=== PATIENT | male | born 1965 | race Caucasian/White ===

== ENCOUNTER 2016-10-12 17:42 | Inpatient (IN) | payer MEDICAID, OTHER ==
[~2016-10-12] VITALS: Ht 188 cm; Wt 93.0 kg
[~2016-10-12 17:42] MED LIST: BISA-79 PO; BUSP5TAB PO; HYDR-3326 PO; LACT1CAP72 PO; PIPE3.379 IV; SULF1TAB48 PO; VANC1PLA3 IV
--- NOTE | 2016-10-12 17:44 | NUR ---
pt bibra to er bed 11. c/o fever since yesterday. presents w/ lle swelling and redness. denies trauma. pt is febrile mine captain w/ oral temp of 101.2 placed on monitor. tachy. pt denies chest pain. awaiting md smith.
--- NOTE | 2016-10-12 17:50 | NUR ---
dr madrid at bedside for eval.
[2016-10-12] MEDS ORDERED: IV SET PRIMARY 1 EA INFUS.SET MC ONE (17:53)
[2016-10-12] MEDS ORDERED: IV NS 0.9% 3,000 ML ONE (17:53)
--- NOTE | 2016-10-12 17:55 | NUR ---
iv line started blood drawn and sent to lab.
[2016-10-12] MEDS ORDERED: IV NS 0.9% 1,000 ML BAG IV ONE (18:00)
[2016-10-12 18:12] LABS: INR 1.17 (0.87-1.13); PROTHROMBIN TIME 12.3 SECS (9.5-12.7)
[2016-10-12 18:14] LABS: ALANINE AMINOTRANSFERASE 46 U/L (12-78); ALBUMIN 3.8 g/dL (3.4-5.0); ALKALINE PHOSPHATASE 121 U/L (46-116); ASPARTATE AMINOTRANSFERASE 36 U/L (15-37); BILIRUBIN,DIRECT 0.1 mg/dL (0.0-0.2); BILIRUBIN,TOTAL 0.8 mg/dL (0.2-1.0); CALCIUM, SERUM 9.3 mg/dL (8.5-10.1); CARBON DIOXIDE 29 mmol/L (21-32); CHLORIDE 94 mmol/L (98-107); CREATININE 1.2 mg/dL (0.6-1.3); GFR 65 mL/min (>60); GLUCOSE 119 mg/dL (74-106); POTASSIUM 4.4 mmol/L (3.5-5.1); SODIUM SERUM 129 mmol/L (136-145); TOTAL PROTEIN, SERUM 8.5 g/dL (6.4-8.2); UREA NITROGEN, BLOOD 14 mg/dL (7-18)
--- NOTE | 2016-10-12 18:14 | NUR ---
radiology at bedside for chest and lt tib/fib xray.
[2016-10-12] MEDS ORDERED: ACETAMINOPHEN ES 500 MG TABLET ONE (18:15)
[2016-10-12 18:16] LABS: TROPONIN I < 0.017 ng/mL (0.00-0.056)
[2016-10-12] MEDS ORDERED: BUSP30TA2 PO (18:19)
[2016-10-12 18:21] LABS: LACTIC ACID 1.6 mmol/L (0.4-2.0)
[2016-10-12 18:24] LABS: BASOPHILS % (AUTO) 0.1 % (0.0-2.0); HEMATOCRIT 46 % (39-51); HEMOGLOBIN 15.3 g/dL (13.5-17.5); LYMPHOCYTES # (AUTO) 0.9 /CMM (0.8-4.8); LYMPHOCYTES % (AUTO) 4.3 % (20.0-44.0); MEAN CORPUSCULAR HEMOGLOBIN 28 PG (26.0-33.0); MEAN CORPUSCULAR HGB CONC 33 g/dl (31.0-36.0); MEAN CORPUSCULAR VOLUME 84 fL (80-96); MONOCYTES # (AUTO) 1.2 /CMM (0.1-1.30); MONOCYTES % (AUTO) 5.8 % (2.0-12.0); NEUTROPHILS # (AUTO) 18.4 /CMM (1.8-8.9); NEUTROPHILS % (AUTO) 89.8 % (43.0-81.0); PLATELET COUNT (AUTO) 207 /CMM (150-450); RDW COEFFICIENT OF VARIATION 13.4 (11.5-15.0); RED BLOOD CELL COUNT(AUTO) 5.46 MIL/uL (4.5-6.0); WHITE BLOOD COUNT (AUTO) 20.5 K/uL (4.3-11.0)
[2016-10-12] MEDS ORDERED: PIPERACILLIN /TAZOBACTAM 3.375 G in IV D5W 50 ML IV ONE (18:30)
[2016-10-12] MEDS ORDERED: VANCOMYCIN 1 GM in IV D5W 250 ML IV ONE (18:30)
[2016-10-12] MEDS ORDERED: ACETAMINOPHEN ES 500 MG TABLET PO ONE (18:30)
[2016-10-12] MEDS ORDERED: IV SET PRIMARY PUMP SET 1 EA INFUS.SET MC ONE (18:38)
--- NOTE | 2016-10-12 18:46 | NUR ---
pt still unable to provide urine sample at this time. urinal at bedside.
[2016-10-12 19:08] LABS: BAND % (MANUAL) 9 % (0.0-5.0); BASOPHILS % (MANUAL) 0 % (0.0-2.0); EOSINOPHILS % (MANUAL) 0 % (0-4); LYMPHOCYTES % (MANUAL) 5 % (16-48); MONOCYTES % (MANUAL) 9 % (0-11.0); NEUTROPHILS % (MANUAL) 77 (42-76); PLATELET ESTIMATE ADEQUATE
--- NOTE | 2016-10-12 19:20 | NUR ---
pt to radiology for lle ct scan via [facility].
[2016-10-12 19:23] LABS: APPEARANCE,URINE Clear (CLEAR); BILIRUBIN,URINE Negative (NEGATIVE); BLOOD, URINE Negative Ery/uL (NEGATIVE); COLOR,URINE Yellow (YELLOW); KETONES,URINE Negative (NEGATIVE); LEUKOCYTE ESTERASE ,URINE Negative (NEGATIVE); NITRITE, URINE Negative (NEGATIVE); PH,URINE 8.5 (5.0-8.0); PROTEIN,URINE 100 mg/dl (NEGATIVE); UGLUCOSE Negative (NEGATIVE)
[2016-10-12] MEDS ORDERED: MAGNESIUM HYDROXIDE 30 ML UDC PO PRN (19:30)
[2016-10-12] MEDS ORDERED: ENOXAPARIN SODIUM 40 MG/0.4 ML DISP.SYRIN SQ SCH (19:30)
[2016-10-12] MEDS: VANCOMYCIN 1.5 GM in IV D5W 500 ML IV SCH (19:30)
[2016-10-12] MEDS ORDERED: MAG HYDROX/AL HYDROX/SIMETH 30 ML UDC PO PRN (19:30)
[2016-10-12] MEDS ORDERED: ONDANSETRON HCL/PF 4 MG/2 ML VIAL IVP PRN (19:30)
[2016-10-12] MEDS ORDERED: Z GUARD REMEDY 2 OZ OINT TP PRN (19:30)
[2016-10-12] MEDS ORDERED: ZOLPIDEM TARTRATE 5 MG TABLET PO PRN (19:30)
--- NOTE | 2016-10-12 19:48 | NUR ---
report given to meng. awaiting transfer to floor.
--- NOTE | 2016-10-12 20:00 | NUR ---
MS MANAGER HELPDESK NOTES ADMITTED THIS 50Y.O. MALE FROM ER PER CRISTA ACCOMPANIED BY LANDSCAPE ENGINEER.CHIEF COMPLAINTS OF FEVER SINCE YESTERDAY AND REDNESS LEFT LOWER LEG.DIAGNOSIS FOR SEPSIS/CELLULITIS LEFT LOWER EXTREMITY.ALERT,ORIENTED X4,NO SOB ,FLUSHED FACE NOTED,AFEBRILE 98.7.SEPSIS PROTOCOL INITIATED IN ER,GIVEN 3 LITERS OF NS,BLOOD CULTURE X2 WAS DONE AWAITING RESULT.IV VANCOMYCIN WAS ALSO GIVEN AND ZOSYN 3.375 GM IV WAS GIVEN.NOTED LEFT LOWER LEG REDNESS WITH TRACING DONE IN ER.SALINE LOCK RFA #20 INTACT AND PATENT.NOTED ALSO DRY OLD WOUND WITH SCAB ON LEFT KNEE AND SKIN ABRASION ON THE RIGHT KNEE.WILL CONTINUE TO MONITOR STATUS.
[2016-10-12] MEDS ORDERED: SECONDARY IV SET 1 EA INFUS.SET MC ONE (20:25)
[2016-10-12] MEDS ORDERED: IV NS 0.9% 1,000 ML ONE (20:25)
[2016-10-12 20:30] VITALS: BP_SYST 114; BP_SYST 135; BP_DIAS 65; BP_DIAS 73
[2016-10-12] MEDS: IV NS 0.9% 1,000 ML IV PRN (20:35)
--- NOTE | 2016-10-12 20:35 | NUR ---
MS RN NOTES STARTED ON NS 1LITER AT 100ML/HR RATE ORDERED
[2016-10-12] MEDS: PIPERACILLIN /TAZOBACTAM 4.5 G in IV D5W 50 ML IV SCH (21:00)
[2016-10-12] MEDS ORDERED: ENOXAPARIN SODIUM 40 MG/0.4 ML DISP.SYRIN SQ ONE (21:04)
--- NOTE | 2016-10-12 21:09 | NUR ---
MS RN NOTES STARTED ON LOVENOX 40MG SQ GIVEN ON RIGHT LOWER ABDOMEN FOR DVT PROPHYLAXIS
--- NOTE | 2016-10-12 21:20 | NUR ---
MS RN NOTES NURSING SHOP AND ALTERATION TAILOR STEPHEN MADE AWARE THAT PATIENT WAS ADMIT TELE,THAT DR MANNING WAS ALREADY NOTIFIED
--- NOTE | 2016-10-12 21:20 | NUR ---
MS RN NOTES NOTED ORDER WAS ADMIT TELE,SEMD MESSAGE TO DR MANNING AWAITING TO RESPOND
--- NOTE | 2016-10-12 21:30 | NUR ---
MS RN NOTES DR MANNING CAME AND CHECKED PATIENT,MADE AWARE ABOUT ADMIT TELE.HE SAID ITS OK MED SURG STATUS.ORDER CHANGED FROM TELE TO MED SURG.
[2016-10-12 22:00] VITALS: BP 114/65
[2016-10-13] VITALS (7 sets, daily range): BP systolic 129–132; BP diastolic 76–77
--- NOTE | 2016-10-13 02:00 | NUR ---
MS RN NOTES SOUND ASLEEP,KEPT WARM AND COMFORTABLE
[2016-10-13] MEDS ORDERED: IV D5W 50 ML IV ONE (03:30)
[2016-10-13] MEDS ORDERED: PIPERACILLIN /TAZOBACTAM 2.25 G VIAL IV ONE (03:30)
[2016-10-13] MEDS: PIPERACILLIN /TAZOBACTAM 4.5 G in IV D5W 50 ML IV SCH (04:35)
[2016-10-13] MEDS ORDERED: IV NS 0.9% 1,000 ML ONE (06:05)
--- NOTE | 2016-10-13 06:10 | NUR ---
MS RN NOTES NEW IV BAG HUNG
[2016-10-13] MEDS: IV NS 0.9% 1,000 ML IV PRN ×2 (06:11→22:25)
--- NOTE | 2016-10-13 06:21 | NUR ---
MS RN NOTES REDNESS ON LEFT LOWER EXTREMITY REMAINS THE SAME.PAIN BEARABLE,WARM TO THE TOUCH.FEELING HUNGRY,EARLY BREAKFAST ORDERED.IN NO ACUTE DISTRESS.WILL ENDORSE TO DAY NURSE FOR LORI.
[2016-10-13] MEDS: HYDROCODONE/APAP 10/325MG 1 EA TABLET PO PRN ×2 (07:27→21:24)
--- NOTE | 2016-10-13 07:28 | NUR ---
MS RN NOTES C/O PAIN 9/10 ON PAIN SCALE VIA LEFT LEG,NORCO 10/325MG.1 TAB PO GIVEN
[2016-10-13] MEDS ORDERED: ENOXAPARIN SODIUM 40 MG/0.4 ML DISP.SYRIN SQ SCH (07:36)
--- NOTE | 2016-10-13 07:40 | NUR ---
MS RN OPENING NOTE PT WAS EATING BREAKFAST PT WAS COMPLAINING OF A HEADACHE, GIVEN NORCO AT 0730 BED IS LOW POSITION. CALL LIGHT WITHIN REACH
[2016-10-13] MEDS ORDERED: FEE PK DOSING 1 MIN EA MC ONE (07:46)
[2016-10-13] MEDS: VANCOMYCIN 1.5 GM in IV D5W 500 ML IV SCH ×2 (08:11→19:02)
[2016-10-13] MEDS ORDERED: SET RED CAP 1 EA INFUS.SET MC ONE (08:13)
[2016-10-13] MEDS: PANTOPRAZOLE 40 MG TABLET.DR PO SCH (08:33)
[2016-10-13 09:34] LABS: HEMATOCRIT 40 % (39-51); LYMPHOCYTES % (AUTO) 7.5 % (20.0-44.0); MEAN CORPUSCULAR HEMOGLOBIN 28 PG (26.0-33.0); MEAN CORPUSCULAR HGB CONC 33 g/dl (31.0-36.0); MEAN CORPUSCULAR VOLUME 85 fL (80-96); MONOCYTES # (AUTO) 0.9 /CMM (0.1-1.30); NEUTROPHILS # (AUTO) 11.6 /CMM (1.8-8.9); NEUTROPHILS % (AUTO) 85.5 % (43.0-81.0); PLATELET COUNT (AUTO) 161 /CMM (150-450); RDW COEFFICIENT OF VARIATION 13.6 (11.5-15.0); RED BLOOD CELL COUNT(AUTO) 4.64 MIL/uL (4.5-6.0); WHITE BLOOD COUNT (AUTO) 13.6 K/uL (4.3-11.0)
[2016-10-13 10:13] LABS: THYROID STIMULATING HORMONE 0.631 uIU/mL (0.358-3.74)
[2016-10-13 10:45] LABS: PHOSPHORUS 1.6 mg/dL (2.5-4.9)
[2016-10-13 11:04] LABS: MAGNESIUM 1.6 mg/dL (1.8-2.4)
--- NOTE | 2016-10-13 11:42 | NUR ---
MS RN NOTE LAB RESULTS SHOWED A DECREASE IN WBC FROM 20.5 TO 13.6. MD WAS NOTIFIED
[2016-10-13] MEDS ORDERED: SECONDARY IV SET 1 EA INFUS.SET MC ONE (12:32)
[2016-10-13] MEDS: PIPERACILLIN /TAZOBACTAM 3.375 G in IV D5W 50 ML IV SCH ×2 (12:32→17:41)
[2016-10-13] MEDS ORDERED: K PHOS NEUTRAL 250 MG TABLET PO ONE (13:30)
[2016-10-13] MEDS: ACETAMINOPHEN 325 MG TABLET PO PRN (14:52)
--- NOTE | 2016-10-13 18:11 | NUR ---
MS/RN CLOSING NOTES PT IS WATCHING TV WITH NO COMPLAINTS OF PAIN. PT IS COOPERATIVE LAST BM AT 1620 TYLENOL WAS GIVEN FOR HEADACHE
--- NOTE | 2016-10-13 19:20 | NUR ---
RN NOTES RECEIVED PT AWAKE, NO SOB, NOT IN DISTRESS, ON ROOM AIR WITH GOOD SATURATION. PT ALERT AND ORIENTED X4, DENIES ANY PAIN AND DISCOMFORT AT THIS TIME. IV ACCESS ON RIGHT AC PATENT AND INTACT WITH ONGOING VANCOMYCIN INFUSING WELL. LEFT LOWER LEG REDNESS AND SWELLING NOTED AND KEPT ELEVATED. BED LOW, LOCKED WITH CALL LIGHT WITHIN REACH. KEPT COMFORTABLE AND ATTENDED. WILL CONTINUE TO MONITOR PT.
--- NOTE | 2016-10-13 21:15 | NUR ---
RN NOTES PT VERBALIZING HE FEELA ANXIOUS, HE SAID THAT HE'S TAKING BUSPAR 30 MG TAB BID. CALLED AND SPOKE TO DR MANNING AND GAVE THE ORDER. PT MADE AWARE , NOTED AND CARRIED OUT.
--- NOTE | 2016-10-13 21:24 | NUR ---
RN NOTES PT COMPLAINS OF 8/10 PAIN ON HIS LEFT LOWER LEG. NORCO 10/325MG TAB GIVEN PO. WILL CONTINUE TO MONITOR PT.
[2016-10-13] MEDS: ENOXAPARIN SODIUM 40 MG/0.4 ML DISP.SYRIN SQ SCH (21:25)
[2016-10-13] MEDS ORDERED: busPIRone 5 MG TABLET ONE (21:53)
[2016-10-13] MEDS: busPIRone 5 MG TABLET PO SCH (22:26)
[2016-10-14] MEDS: PIPERACILLIN /TAZOBACTAM 3.375 G in IV D5W 50 ML IV SCH ×2 (00:02→05:32)
[2016-10-14] MEDS: HYDROCODONE/APAP 10/325MG 1 EA TABLET PO PRN (05:32)
--- NOTE | 2016-10-14 05:32 | NUR ---
RN NOTES PT COMPLAINS OF 8/10 PAIN ON HIS LEFT LOWER LEG. NORCO 10/325 MG TAB GIVEN PO. WILL CONTINUE TO MONITOR PT.
[2016-10-14] MEDS: VANCOMYCIN 1.5 GM in IV D5W 500 ML IV SCH ×2 (06:31→20:38)
[2016-10-14 06:43] LABS: EOSINOPHILS % (AUTO) 0.1 % (0.0-6.0); HEMATOCRIT 38 % (39-51); HEMOGLOBIN 12.7 g/dL (13.5-17.5); LYMPHOCYTES % (AUTO) 10.1 % (20.0-44.0); MEAN CORPUSCULAR HEMOGLOBIN 29 PG (26.0-33.0); MEAN CORPUSCULAR HGB CONC 33 g/dl (31.0-36.0); MEAN CORPUSCULAR VOLUME 86 fL (80-96); MONOCYTES # (AUTO) 1.3 /CMM (0.1-1.30); MONOCYTES % (AUTO) 12.5 % (2.0-12.0); NEUTROPHILS # (AUTO) 7.9 /CMM (1.8-8.9); NEUTROPHILS % (AUTO) 77.3 % (43.0-81.0); PLATELET COUNT (AUTO) 145 /CMM (150-450); RDW COEFFICIENT OF VARIATION 13.6 (11.5-15.0); RED BLOOD CELL COUNT(AUTO) 4.44 MIL/uL (4.5-6.0); WHITE BLOOD COUNT (AUTO) 10.3 K/uL (4.3-11.0)
[2016-10-14 06:44] LABS: CALCIUM, SERUM 8.4 mg/dL (8.5-10.1); CREATININE 0.9 mg/dL (0.6-1.3); PHOSPHORUS 2.3 mg/dL (2.5-4.9)
--- NOTE | 2016-10-14 06:48 | NUR ---
RN NOTES PT ASLEEP, BREATHING REGULAR AND UNLABORED, NO SOB, NOT IN DISTRESS, TOLERATING ROOM AIR. VITAL SIGNS STABLE, AFEBRILE. NO EPISODE OF NAUSEA AND VOMITING. KEPT PAIN AT TOLERABLE LEVEL. ALL DUE MEDS GIVEN. ALL NEEDS ATTENDED. NO SIGNIFICANT CHANGE IN CONDITION NOTED. WILL ENDORSE TO MORNING RN FOR CONTINUITY OF CARE.
--- NOTE | 2016-10-14 07:30 | NUR ---
MS RN OPENING RECEIVED PATIENT A/OX4 SLEEPING AWAKE TO LIGHT TOUCH. PATIENT STATES NORCO IS WORKING FOR HIS PAIN AND TOLERABLE PAIN NOW. PATIENT STATES NO NEEDS AT THIS TIME. BILAT LOWER EXTREMITIES ELEVATED ON PILLOWS AND PATIENT DENIES SOB, DIFFICULTY BREATHING. CALL LIGHT IN REACH,BED LOWERED AND LOCKED, RAILS UPX3 FOR SAFETY AND WILL ROUND Q2H OR LESS PER NEEDS
[2016-10-14 08:00] VITALS: BP 117/66
[2016-10-14] MEDS: PANTOPRAZOLE 40 MG TABLET.DR PO SCH (08:16)
[2016-10-14] MEDS: busPIRone 5 MG TABLET PO SCH ×2 (09:38→16:51)
[2016-10-14] MEDS: CEFTRIAXONE 1 G in IV D5W 50 ML IV SCH (09:38)
[2016-10-14] MEDS: IV NS 0.9% 1,000 ML IV PRN (09:48)
[2016-10-14] MEDS: KETOROLAC TROMETHAMINE INJ 30 MG/ML VIAL IM/IV PRN ×2 (09:51→16:51)
[2016-10-14 16:00] VITALS: BP 113/61
[2016-10-14] MEDS ORDERED: K PHOS NEUTRAL 250 MG TABLET PO ONE (16:00)
[2016-10-14] MEDS: LACTOBACILLUS RHAMNOSUS GG 1 EACH CAP.SPRINK PO SCH (16:52)
--- NOTE | 2016-10-14 18:45 | NUR ---
MS RN CLOSING PATIENT STABLE NO COMPLICATIONS. PATIENT STATES HE FEELS MUCH BETTER TODAY AND PRN MEDICATIONS HELPING TREMENDOUSLY. PATIENT DENIES PAIN AT THIS TIME, SOB, DIFFICULTY BREATHING. IN POSITION OF COMFORT. ALL DUE MEDS GIVEN AND ALL NEEDS MET. CALL LIGHT IN REACH, BED LOWERED AND LOCKED, RAILS UPX3 FOR SAFETY AND WILL ENDORSE CARE TO RN FOR LORI
--- NOTE | 2016-10-14 19:30 | NUR ---
MS RN INITIAL NOTE RECEIVED PT SLEEPING BUT EASILY AROUSED, ORIENTED X4, NO COMPLAINT OF PAIN OR RESPIRATORY DISTRESS NOTED DURING PHYSICAL ASSESSMENT, WILL CONTINUE TO MONITOR CLOSELY.
[2016-10-14 20:16] VITALS: BP 121/68
[2016-10-14] MEDS: ENOXAPARIN SODIUM 40 MG/0.4 ML DISP.SYRIN SQ SCH (20:23)
[2016-10-15] MEDS: KETOROLAC TROMETHAMINE INJ 30 MG/ML VIAL IM/IV PRN ×2 (00:23→18:43)
[2016-10-15] MEDS: IV NS 0.9% 1,000 ML IV PRN (06:17)
--- NOTE | 2016-10-15 06:42 | NUR ---
PT SLEPT MOST OF THE NIGHT, REMAINED STABLE AND COMFORTABLE, WILL ENDORSE TO AM NURSE FOR LORI.
[2016-10-15 08:00] VITALS: BP 131/80
[2016-10-15] MEDS: VANCOMYCIN 1.5 GM in IV D5W 500 ML IV SCH ×2 (09:10→18:55)
[2016-10-15] MEDS: PANTOPRAZOLE 40 MG TABLET.DR PO SCH (09:11)
[2016-10-15] MEDS: LACTOBACILLUS RHAMNOSUS GG 1 EACH CAP.SPRINK PO SCH ×2 (09:11→17:15)
[2016-10-15] MEDS: busPIRone 5 MG TABLET PO SCH ×2 (09:11→17:15)
--- NOTE | 2016-10-15 10:00 | NUR ---
iv leaking and removed.several attempts to restart and unsuccessful,stacey brooks called for midline order.
--- NOTE | 2016-10-15 10:15 | NUR ---
stacey brooks aware pt. on 2 antibiotics.
--- NOTE | 2016-10-15 10:20 | NUR ---
AM VACOMYCIN NOT GIVEN IV SITE LEAKING.
[2016-10-15 10:35] LABS: BASOPHILS % (AUTO) 0.1 % (0.0-2.0); EOSINOPHILS # (AUTO) 0.1 /CMM (0.0-0.7); EOSINOPHILS % (AUTO) 0.7 % (0.0-6.0); HEMATOCRIT 35 % (39-51); HEMOGLOBIN 11.6 g/dL (13.5-17.5); LYMPHOCYTES # (AUTO) 0.9 /CMM (0.8-4.8); LYMPHOCYTES % (AUTO) 11.7 % (20.0-44.0); MEAN CORPUSCULAR HEMOGLOBIN 28 PG (26.0-33.0); MEAN CORPUSCULAR HGB CONC 33 g/dl (31.0-36.0); MEAN CORPUSCULAR VOLUME 84 fL (80-96); MONOCYTES # (AUTO) 0.9 /CMM (0.1-1.30); MONOCYTES % (AUTO) 11.9 % (2.0-12.0); NEUTROPHILS # (AUTO) 5.9 /CMM (1.8-8.9); NEUTROPHILS % (AUTO) 75.6 % (43.0-81.0); PLATELET COUNT (AUTO) 198 /CMM (150-450); RDW COEFFICIENT OF VARIATION 13.4 (11.5-15.0); RED BLOOD CELL COUNT(AUTO) 4.17 MIL/uL (4.5-6.0); WHITE BLOOD COUNT (AUTO) 7.8 K/uL (4.3-11.0)
[2016-10-15 10:51] LABS: CALCIUM, SERUM 8.2 mg/dL (8.5-10.1); CREATININE 0.8 mg/dL (0.6-1.3); PHOSPHORUS 2.7 mg/dL (2.5-4.9); POTASSIUM 3.8 mmol/L (3.5-5.1)
[2016-10-15] MEDS ORDERED: [UNRECOGNIZED DRUG - SUPPLY] MC ONE (13:15)
[2016-10-15] MEDS: HYDROCODONE/APAP 10/325MG 1 EA TABLET PO PRN (15:00)
--- NOTE | 2016-10-15 15:00 | NUR ---
MEDICATED FOR PAIN WITH NORCO TAB.STATES PAIN GENERALIZED.
[2016-10-15 16:00] VITALS: BP 147/74
--- NOTE | 2016-10-15 18:00 | NUR ---
BETHANY UREÑA HERE MIDLINE INSERTED CHRISTIAN ARM,TOLERATED WELL.ANTIBIOTICS RESTARTED.
[2016-10-15] MEDS: CEFTRIAXONE 1 G in IV D5W 50 ML IV SCH (18:14)
--- NOTE | 2016-10-15 18:50 | NUR ---
REQUESTING TORADOL FOR HEADACHE.
[2016-10-15] MEDS ORDERED: SECONDARY IV SET 1 EA INFUS.SET MC ONE (18:54)
--- NOTE | 2016-10-15 19:30 | NUR ---
MS RN INITIAL NOTE RECEIVED PT AWAKE AND ALERT, ORIENTED X4, NO COMPLAINT OF PAIN OR RESPIRATORY DISTRESS NOTED, PT IS CLEAN/DRY, STABLE AND COMFORTABLE, WILL CONTINUE TO MONITOR CLOSELY.
[2016-10-15 19:53] VITALS: BP 127/77
[2016-10-15] MEDS: ENOXAPARIN SODIUM 40 MG/0.4 ML DISP.SYRIN SQ SCH (21:12)
[2016-10-16] MEDS: KETOROLAC TROMETHAMINE INJ 30 MG/ML VIAL IM/IV PRN ×2 (04:02→18:22)
[2016-10-16] MEDS: VANCOMYCIN 1.5 GM in IV D5W 500 ML IV SCH ×2 (06:18→18:14)
--- NOTE | 2016-10-16 06:40 | NUR ---
MS RN CLOSING NOTE PT REMAINED STABLE DURING DIRECTOR CORPORATE, WILL ENDORSE TO AM NURSE FOR LORI.
[2016-10-16 07:11] LABS: CALCIUM, SERUM 8.4 mg/dL (8.5-10.1); CREATININE 0.7 mg/dL (0.6-1.3)
--- NOTE | 2016-10-16 07:30 | NUR ---
RN Notes Received on bed awake,alert and oriented. not in any form of distress denies headache or dizziness. Still with pain and swelling on left leg, warm and tender. Still able to move it. On RA saturating at 97% with no SOB. With IV access on left upper arm patent and intact. with ongoing IVF of NS at 75 cc/hr infusing well. No other complain at this time.
[2016-10-16 08:00] VITALS: BP 137/78
[2016-10-16] MEDS: PANTOPRAZOLE 40 MG TABLET.DR PO SCH (08:54)
[2016-10-16] MEDS: LACTOBACILLUS RHAMNOSUS GG 1 EACH CAP.SPRINK PO SCH ×2 (08:54→17:25)
[2016-10-16] MEDS: busPIRone 5 MG TABLET PO SCH ×2 (08:54→17:25)
--- NOTE | 2016-10-16 10:26 | NUR ---
Social service consult requested by Dr. Torres for homelessness. Per H&P report by Dr. Torres, patient is a 50-year old homeless male with a PMHx of HTN. The patient is currently homeless and lives on the streets. Patient stated that he has been feeling better. He reports having been medication compliant prior to admission. Pt was admitted to [facility] for sepsis related to left lower extremity cellulitis. SW met with the patient at his bedside. He was alert and oriented x4. He presented with poor grooming and hygiene, euthymic mood, and anxious affect, and slight psychomotor agitation. His thought process was coherent and goal oriented. He denied any visual or auditory hallucinations. He denied any suicidal or homicidal ideation. Pt reported that he has been homeless for a few years. He reported having a "great tent location." He said that his encampment is safe and that he has a "great relationship with the flour distributor" so they don't bother him. He denied any current ETOH or substance abuse. 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 He reported a history of anxiety for which he is receiving medications. 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 Pt reported that he was interested in food bank resources. However, he stated that he was not interested in any resources related to housing, shelters, mental clinics, or substance abuse treatment. Per pt, he would like to be discharged back to his encampment. Pt provided the following address: [address] [place] [address].; [place] [address]. SW will provide patient with the requested resources: food jimenez. SW will update case management regarding pt's discharge plan.
[2016-10-16] MEDS: IV NS 0.9% 1,000 ML IV PRN (12:01)
[2016-10-16 16:00] VITALS: BP 143/81
[2016-10-16] MEDS: CEFTRIAXONE 1 G in IV D5W 50 ML IV SCH (17:25)
--- NOTE | 2016-10-16 18:00 | NUR ---
RN Notes Resting well with no complain at this time. Still with leg swelling and tenderness, supported on a pillow. Needs anticipated. No untoward symptom noted within the shift. Will endorse to shift manager nurse for the continuity of care. Call light placed within easy reach.
--- NOTE | 2016-10-16 18:10 | NUR ---
RN Notes Spoke with Frederick pharmacist and verify dose for vanco with trough of 10, and he said to give the same dose of 1.5G
--- NOTE | 2016-10-16 19:30 | NUR ---
RN NOTES RECEIVED PT AWAKE ON BED, A/OX4, DENIES PAIN AT THIS TIME, MIDLINE ON THE LEFT UPPER ARM IN PLACE, IV FLUID RUNNING, CALL LIGHT WITHIN REACH, SIDERAILS UPX2 CONTINUE TO MONITOR
[2016-10-16 20:00] VITALS: BP_SYST 123; BP_SYST 139; BP_DIAS 74; BP_DIAS 75
[2016-10-16] MEDS: ENOXAPARIN SODIUM 40 MG/0.4 ML DISP.SYRIN SQ SCH (20:55)
[2016-10-17] MEDS: HYDROCODONE/APAP 10/325MG 1 EA TABLET PO PRN ×2 (02:54→22:42)
--- NOTE | 2016-10-17 02:55 | NUR ---
RN NOTES COMPLAINED OF LEFT LEG PAIN- AND ASKED FOR NORCO, NORCO 10/325MG PO GIVEN ORDERED, V/S STABLE
[2016-10-17] MEDS: IV NS 0.9% 1,000 ML IV PRN ×2 (02:57→20:56)
[2016-10-17] MEDS: KETOROLAC TROMETHAMINE INJ 30 MG/ML VIAL IM/IV PRN (06:25)
--- NOTE | 2016-10-17 06:28 | NUR ---
RN NOTES COMPLAINED OF LEFT LEG PAIN- AND ASKED FOR TORADOL- TORADOL 30MG IV GIVEN ORDERED, V/S STABLE
[2016-10-17] MEDS: VANCOMYCIN 1.5 GM in IV D5W 500 ML IV SCH ×2 (06:31→18:24)
--- NOTE | 2016-10-17 07:00 | NUR ---
RN NOTES SLEEPING BUT AROUSABLE, DENIES PAIN A T THIS TIME, NO SOB, MORNING CARE RENDERED, PT. NEEDS ATTENDED. ENDORSED TO [facility] NURSE FOR CONTINUITY OF CARE
[2016-10-17 07:02] LABS: CALCIUM, SERUM 8.1 mg/dL (8.5-10.1); CREATININE 0.8 mg/dL (0.6-1.3); POTASSIUM 4.2 mmol/L (3.5-5.1)
[2016-10-17] MEDS: PANTOPRAZOLE 40 MG TABLET.DR PO SCH (07:39)
--- NOTE | 2016-10-17 07:49 | NUR ---
MS RN INITIAL NOTES RECEIVED REPORT FROM PENSION ADVISER. PT IS LAYING IN BED. DENIES ANY PAIN HAS VANCO RUNNING
[2016-10-17 08:00] VITALS: BP 155/95
[2016-10-17 08:17] VITALS: BP_SYST 124; BP_SYST 155; BP_DIAS 65; BP_DIAS 95
[2016-10-17] MEDS: busPIRone 5 MG TABLET PO SCH ×2 (08:50→16:16)
[2016-10-17] MEDS: LACTOBACILLUS RHAMNOSUS GG 1 EACH CAP.SPRINK PO SCH ×2 (08:50→16:17)
[2016-10-17] MEDS ORDERED: IV SET PRIMARY PUMP SET 1 EA INFUS.SET MC ONE (08:53)
[2016-10-17 16:00] VITALS: BP 144/82
[2016-10-17] MEDS: HYDROCODONE/APAP 5/325MG 1 EACH TABLET PO PRN (16:17)
[2016-10-17] MEDS ORDERED: SECONDARY IV SET 1 EA INFUS.SET MC ONE (17:27)
[2016-10-17] MEDS: CEFTRIAXONE 1 G in IV D5W 50 ML IV SCH (17:31)
[2016-10-17 18:30] VITALS: BP 144/82
--- NOTE | 2016-10-17 19:02 | NUR ---
MS RN CLOSING NOTES PT IS LAYING IN BED RESTING WITH AT BEDSIDE. VANCO IS RUNNING AT 250 ML/HR THERE IS NO APPARENT DISTRESS. NO SOB. PLAN IS TO CONTINUE ANTIBIOTICS
[2016-10-17 20:00] VITALS: BP_SYST 144; BP_DIAS 74; BP_DIAS 77
[2016-10-17] MEDS: ENOXAPARIN SODIUM 40 MG/0.4 ML DISP.SYRIN SQ SCH (21:00)
--- NOTE | 2016-10-17 22:45 | NUR ---
RN NOTES RECEIVED PT AWAKE ON BED, A/OX4, AT BEDSIDE, DENIES PAIN, NO SOB, WITH LEFT LEG CELLULITIS, DENIES PAIN, NO SOB, CALL LIGHT WITHIN REACH, SIDERAILS UPX2 CONTINUE TO MONITOR
--- NOTE | 2016-10-17 22:45 | NUR ---
RN NOTES COMPLAINED OF LEFT LEG PAIN- NORCO 10/325 MG PO GIVEN ORDERED, V/S STABLE
[2016-10-18] MEDS: HYDROCODONE/APAP 5/325MG 1 EACH TABLET PO PRN ×2 (02:28→12:41)
[2016-10-18] MEDS ORDERED: IV SET PRIMARY PUMP SET 1 EA INFUS.SET MC ONE (02:32)
--- NOTE | 2016-10-18 02:46 | NUR ---
RN NOTES COMPLAINED OF LEFT LEG PAIN- PAIN SCALE OF 6/10- NORCPO 5/325 MG PO GIVEN ORDERED, V/S STABLE
[2016-10-18] MEDS: ACETAMINOPHEN 325 MG TABLET PO PRN (05:23)
--- NOTE | 2016-10-18 05:23 | NUR ---
RN NOTES COMPLAINED OF HEADACHE- TYLENOL 650MG PO GIVEN ORDERED
[2016-10-18] MEDS: VANCOMYCIN 1.5 GM in IV D5W 500 ML IV SCH ×2 (06:23→18:16)
[2016-10-18 06:30] LABS: BASOPHILS % (AUTO) 0.3 % (0.0-2.0); EOSINOPHILS # (AUTO) 0.3 /CMM (0.0-0.7); EOSINOPHILS % (AUTO) 3.9 % (0.0-6.0); HEMATOCRIT 32 % (39-51); HEMOGLOBIN 10.6 g/dL (13.5-17.5); LYMPHOCYTES # (AUTO) 1.4 /CMM (0.8-4.8); LYMPHOCYTES % (AUTO) 18.3 % (20.0-44.0); MEAN CORPUSCULAR HEMOGLOBIN 29 PG (26.0-33.0); MEAN CORPUSCULAR HGB CONC 34 g/dl (31.0-36.0); MEAN CORPUSCULAR VOLUME 85 fL (80-96); MONOCYTES # (AUTO) 0.8 /CMM (0.1-1.30); MONOCYTES % (AUTO) 10.2 % (2.0-12.0); NEUTROPHILS % (AUTO) 67.3 % (43.0-81.0); PLATELET COUNT (AUTO) 230 /CMM (150-450); RDW COEFFICIENT OF VARIATION 13.5 (11.5-15.0); RED BLOOD CELL COUNT(AUTO) 3.72 MIL/uL (4.5-6.0); WHITE BLOOD COUNT (AUTO) 7.4 K/uL (4.3-11.0)
--- NOTE | 2016-10-18 06:47 | NUR ---
RN NOTES SLEEPING BUT AROUSABLE, MORNING CARE RENDERED, PT NEEDS ATTENDED.ENDORSED TO DAYSHIFT NURSE FOR CONTINUITY OF CARE
[2016-10-18 06:48] LABS: CALCIUM, SERUM 7.9 mg/dL (8.5-10.1); CREATININE 0.8 mg/dL (0.6-1.3); MAGNESIUM 1.9 mg/dL (1.8-2.4); PHOSPHORUS 3.9 mg/dL (2.5-4.9); POTASSIUM 3.9 mmol/L (3.5-5.1)
--- NOTE | 2016-10-18 07:10 | NUR ---
MS RN NOTES RECEIVED PATIENT IN BED, A/O X4. APPEARS ANXIOUS. NO C/O SOB. MID LINE MERLIN PATENT AND INTACT, FLUSHES WELL. BLE ELEVATED WITH PILLOWS. CALL LIGHT WITHIN REACH. WILL CONT TO MONITOR.
[2016-10-18 08:00] VITALS: BP 151/95
[2016-10-18] MEDS: LACTOBACILLUS RHAMNOSUS GG 1 EACH CAP.SPRINK PO SCH ×2 (08:16→17:07)
[2016-10-18] MEDS: PANTOPRAZOLE 40 MG TABLET.DR PO SCH (08:17)
[2016-10-18] MEDS: busPIRone 5 MG TABLET PO SCH ×2 (08:20→17:06)
--- NOTE | 2016-10-18 11:36 | NUR ---
PER PATIENT HE FEELS HEADACHE IN THE MORNING, AND HYPOGLYCEMIC IN THE PAST WHEN HE HAS HEADACHE. PATIENT IS SEEN BY DR. BETHANY UREÑA TODAY, SPOKE TO THE PATIENT. ORDERED TO CHECK BLOOD SUGAR IN THE MORNING BEFORE BREAKFAST WHEN PATIENT C/O HEADACHE, NO INSULIN PARAMETERS NEEDED. PER MD PATIENT IS POSSIBLY GOING TO BE DISCHARGED TOMORROW.
[2016-10-18] MEDS: IV NS 0.9% 1,000 ML IV PRN (12:34)
[2016-10-18 16:00] VITALS: BP 138/90
[2016-10-18] MEDS ORDERED: SECONDARY IV SET 1 EA INFUS.SET MC ONE (17:05)
[2016-10-18] MEDS: CEFTRIAXONE 1 G in IV D5W 50 ML IV SCH (17:06)
--- NOTE | 2016-10-18 18:34 | NUR ---
MS RN NOTES PATIENT IN BED, A/OX4. NOT IN DISTRESS. ON ANTIBIOTIC WITH NO ADVERSE REACTION NOTED, AFEBRILE. NO C/O PAIN AT THIS TIME. APPEARS CALM AND RELAXED. PATIENT IS AMBULATORY, VOIDED WITHOUT DIFFICULTY. CALL LIGHT WITHIN REACH. WILL ENDORSE TO RADIO COMMUNICATIONS MECHANICIAN RN FOR CONTINUITY OF CARE.
--- NOTE | 2016-10-18 19:30 | NUR ---
MS RN NOTES RECEIVED ON BED SLEEPING,AROUSABLE TO VERBAL STIMULI,BREATHING REGULAR,NOT IN ANY FORM OF DISTRESS, IV ABX INFUSING AT THIS TIME VIA LEFT UPPER ARM MIDLINE VIA IV PUMP,LLE REMAINS WITH SLIGHT REDNESS,ENCOURAGED TO ELEVATE ON PILLOWS.CALL LIGHT IN REACH,NEEDS ANTICIPATED.
[2016-10-18 20:00] VITALS: BP 143/74
[2016-10-18] MEDS: ENOXAPARIN SODIUM 40 MG/0.4 ML DISP.SYRIN SQ SCH (20:53)
--- NOTE | 2016-10-18 21:00 | NUR ---
MS RN NOTES DUE LOVENOX 40MG SQ OFFERED BUT REFUSED.CLAIMED HE'S GOING HOME TOMORROW
--- NOTE | 2016-10-19 03:00 | NUR ---
MS RN NOTES BLOOD SUGAR CHECK PER PATIENT REQUEST AND IT WAS 102.
[2016-10-19] MEDS: IV NS 0.9% 1,000 ML IV PRN (04:35)
--- NOTE | 2016-10-19 04:38 | NUR ---
MS RN NOTES NEW IV BAG HUNG
--- NOTE | 2016-10-19 05:00 | NUR ---
MS RN NOTES CLAIMED HE HAS SLIGHT HEADACHE,BLOOD SUGAR CHECK WAS 103,IFTIKHAR CRACKERS GIVEN PER PATIENT REQUEST
[2016-10-19] MEDS: VANCOMYCIN 1.5 GM in IV D5W 500 ML IV SCH (05:19)
--- NOTE | 2016-10-19 05:20 | NUR ---
MS RN NOTES VANCOMYCIN 1.25GM IV IVPB HUNG INFUSING VIA IV PUMP AT 250ML/HR RATE OVER 2 HOURS.
--- NOTE | 2016-10-19 06:03 | NUR ---
MS RN NOTES NO SIGNIFICANT CHANGES IN STATUS.LEFT LOWER LEG SWELLING AND REDNESS SUBSIDED.DENIES PAIN.IV ABX TOLERATED WELL,BLOOD SUGAR WITH IN NORMAL LIMITS.POSSIBLE D/C HOME TODAY WHEN STABLE.CALL LIGHT IN REACH,NEEDS ATTENDED.WILL ENDORSE TO DAY NURSE FOR LORI.
--- NOTE | 2016-10-19 07:19 | NUR ---
AM RN NOTE Received patient sleeping comfortably in his bed, arouses upon touch. Resp even and non-labored. Midline on MERLIN intact and patent. Bed in low locked position. Will continue to monitor.
[2016-10-19] MEDS ORDERED: BLOOD SUGAR DIAGNOSTIC 1 EACH STRIP IN SCH (07:30)
[2016-10-19] MEDS: PANTOPRAZOLE 40 MG TABLET.DR PO SCH (07:58)
[2016-10-19] MEDS: LACTOBACILLUS RHAMNOSUS GG 1 EACH CAP.SPRINK PO SCH (07:58)
[2016-10-19] MEDS: busPIRone 5 MG TABLET PO SCH (07:58)
[2016-10-19 08:00] VITALS: BP 156/88
[2016-10-19] MEDS ORDERED: DOXY-182 PO (12:17)
--- NOTE | 2016-10-19 15:15 | NUR ---
AM RN NOTE Patient awake, A/O X4 verbally responsive able to make needs known. New order given by Dr. Frederick Sullivan to discharge pt home. Discharge instructions on medications and teachings given to pt and shows understanding. Rx faxed to pharmacy on file by MD. Pt refused to notify anyone about his discharge order. Pt stated his friend (Romain) will pick him up. Denies any pain or discomfort at this time. Skin pictures taken and placed in cart.
--- NOTE | 2016-10-19 15:35 | NUR ---
AM RN NOTE Patient awake, Midline removed as ordered per MD. ID band removed. Belongings endorsed and signed. Patient discharged/ left unit at this time with all his belongings as accompanied by TOOL STRAIGHTENER to downstairs, friend Romain awaiting downstairs.
== END 2016-10-19 15:35 | disposition home or self-care (01) | DRG 720 ==
LOC: ER 17:45 → MEDSG2 19:09
PROVIDERS: ADMIT Family Medicine; ATTEND Family Medicine
PROC: 05H633Z Insertion of Infusion Device into Left Subclavian Vein, Percutaneous Approach (ICD-10-PCS; principal; 2016-10-15)
PROC: B547ZZA Ultrasonography of Left Subclavian Vein, Guidance (ICD-10-PCS; principal; 2016-10-15)
DX: A41.9 Sepsis, unspecified organism (principal); E87.1 Hypo-osmolality and hyponatremia; I10 Essential (primary) hypertension; L03.116 Cellulitis of left lower limb; F41.9 Anxiety disorder, unspecified; Z59.0 Homelessness; R93.6 Abnormal findings on diagnostic imaging of limbs
CPT/HCPCS: 36415; 71010-TC; 73590-TC; 73700-TC; 80048-TC; 80061-TC; 80076-TC; 80202-TC; 81000-TC; 82962-TC; 83605-TC; 83735-TC; 84100-TC; 84443-TC; 84484-TC; 85025-TC; 85730-TC; 87040-TC; 87081-TC; 87086-TC; A4606; J0696; J1650; J1885; J2543; J3370; J7030; J7060; Z7610

== ENCOUNTER 2017-05-24 01:13 | Inpatient (IN) | payer MEDICAID, OTHER ==
[~2017-05-24] VITALS: Ht 188 cm; Wt 91.2 kg
[~2017-05-24 01:13] MED LIST changes: -BISA-79 PO; +BUSP30TA2 PO; -BUSP5TAB PO; +DOXY-182 PO; -HYDR-3326 PO; -LACT1CAP72 PO; -PIPE3.379 IV; -SULF1TAB48 PO; -VANC1PLA3 IV
--- NOTE | 2017-05-24 03:25 | NUR ---
PT RECEIVED FROM HOME C/O LEFT LOWER LEG PAIN/SWELLING 01/09. "THIS HAPPENS EVERY SO OFTEN BECAUSE I HAVE A NASRA IN MY LEG". NO SOB NOTED WITH CLEAR LUNG SOUNDS. WILL CONTINUE TO MONITOR FOR ANY CHANGES.
--- NOTE | 2017-05-24 03:28 | NUR ---
ms [id number]
[2017-05-24] MEDS ORDERED: IV NS 0.9% 1,000 ML BAG IV ONE (03:30)
[2017-05-24] MEDS ORDERED: HYDROMORPHONE 1 MG/1 ML DISP.SYRIN IV ONE (03:30)
[2017-05-24] MEDS ORDERED: VANCOMYCIN 1 GM in IV D5W 250 ML IV ONE (03:30)
[2017-05-24] MEDS ORDERED: ONDANSETRON HCL/PF 4 MG/2 ML VIAL IVP ONE (03:30)
[2017-05-24] MEDS ORDERED: PIPERACILLIN /TAZOBACTAM 3.375 G in IV D5W 50 ML IV ONE (03:30)
--- NOTE | 2017-05-24 03:32 | NUR ---
RADIOLOGY AT BEDSIDE
[2017-05-24] MEDS ORDERED: ONDANSETRON HCL/PF 4 MG/2 ML VIAL ONE (03:40)
[2017-05-24] MEDS ORDERED: PIPERACILLIN /TAZOBACTAM 3.375 G VIAL IV ONE (03:41)
[2017-05-24] MEDS ORDERED: VANCOMYCIN 1 GM VIAL ONE (03:41)
[2017-05-24 03:52] LABS: BASOPHILS # (AUTO) 0.1 /CMM (0.0-0.2); BASOPHILS % (AUTO) 0.5 % (0.0-2.0); EOSINOPHILS # (AUTO) 0.1 /CMM (0.0-0.7); EOSINOPHILS % (AUTO) 1.3 % (0.0-6.0); HEMATOCRIT 43 % (39-51); HEMOGLOBIN 14.2 g/dL (13.5-17.5); LYMPHOCYTES # (AUTO) 1.7 /CMM (0.8-4.8); LYMPHOCYTES % (AUTO) 15.8 % (20.0-44.0); MEAN CORPUSCULAR HEMOGLOBIN 28 PG (26.0-33.0); MEAN CORPUSCULAR HGB CONC 33 g/dl (31.0-36.0); MEAN CORPUSCULAR VOLUME 85 fL (80-96); MONOCYTES # (AUTO) 1.4 /CMM (0.1-1.30); MONOCYTES % (AUTO) 12.7 % (2.0-12.0); NEUTROPHILS # (AUTO) 7.6 /CMM (1.8-8.9); NEUTROPHILS % (AUTO) 69.7 % (43.0-81.0); PLATELET COUNT (AUTO) 274 /CMM (150-450); RDW COEFFICIENT OF VARIATION 13.2 (11.5-15.0); RED BLOOD CELL COUNT(AUTO) 5.06 MIL/uL (4.5-6.0); WHITE BLOOD COUNT (AUTO) 10.9 K/uL (4.3-11.0)
--- NOTE | 2017-05-24 04:04 | NUR ---
report called to M/S TANNA Payan. pending hospital admission.
[2017-05-24 04:07] LABS: CALCIUM, SERUM 9.2 mg/dL (8.5-10.1); POTASSIUM 3.4 mmol/L (3.5-5.1)
[2017-05-24] MEDS ORDERED: MORPHINE SULFATE INJ 4 MG/ML DISP.SYRIN ONE (04:10)
[2017-05-24 04:11] LABS: INR 0.93 (0.87-1.13); PROTHROMBIN TIME 9.7 SECS (9.5-12.7)
--- NOTE | 2017-05-24 04:17 | NUR ---
vascular neurologist at bedside.
[2017-05-24] MEDS ORDERED: MORPHINE SULFATE INJ 2 MG/ML DISP.SYRIN IV ONE (04:30)
[2017-05-24] MEDS ORDERED: POTASSIUM CHLORIDE 20 MEQ TAB.PRT.SR PO ONE ×3 (04:30→10:00)
--- NOTE | 2017-05-24 04:37 | NUR ---
er talking to dr. collin ferraro regarding pt admission.
--- NOTE | 2017-05-24 04:44 | NUR ---
PATIENT TRANSFERRED TO MS
[2017-05-24 05:00] VITALS: BP 138/72
--- NOTE | 2017-05-24 05:00 | NUR ---
MS NEURO PSYCH SALES SPECIALIST NOTES ADMITTED THIS 51 Y.O. MALE FROM ER PER CRISTA WITH CHIEF COMPLAINTS OF REDNESS AND SWELLING OF LEFT LOWER LEG.ALERT,ORIENTED X4,BREATHING REGULAR,SALINE LOCK RFA INTACT AND PATENT,VANCOMYCIN INFUSING FRO ER.WITH MULTIPLE SKIN ISSUES ON BOTH UPPER AND LOWER EXTREMITIES.PAIN BEARABLE AT THE MOMENT 2/10 ON PAIN SCALE.ON REGULAR DIET.BED ON LOWEST POSITION AND LOCKED.CALL LIGHT IN REACH,NEEDS ANTICIPATED.
--- NOTE | 2017-05-24 06:00 | NUR ---
MS RN NOTES SPOKE TO DR MANNING,INFORMED ABOUT PATIENT ADMISSION.WILL PUT ORDERS.
[2017-05-24] MEDS ORDERED: ACETAMINOPHEN 325 MG TABLET PO PRN (06:30)
[2017-05-24] MEDS ORDERED: ZOLPIDEM TARTRATE 5 MG TABLET PO PRN (06:30)
[2017-05-24] MEDS ORDERED: Z GUARD REMEDY 2 OZ OINT TP PRN (06:30)
[2017-05-24] MEDS ORDERED: MAG HYDROX/AL HYDROX/SIMETH 30 ML UDC PO PRN (06:30)
[2017-05-24] MEDS ORDERED: MAGNESIUM HYDROXIDE 30 ML UDC PO PRN (06:30)
[2017-05-24] MEDS ORDERED: ONDANSETRON HCL/PF 4 MG/2 ML VIAL IVP PRN (06:30)
[2017-05-24] MEDS ORDERED: HYDROCODONE/APAP 5/325MG 1 EACH TABLET PO PRN (06:30)
[2017-05-24] MEDS ORDERED: ENOXAPARIN SODIUM 40 MG/0.4 ML DISP.SYRIN SQ SCH (06:30)
[2017-05-24] MEDS: IV NS 0.9% 1,000 ML IV PRN ×2 (06:41→19:39)
--- NOTE | 2017-05-24 06:41 | NUR ---
MS RN NOTES STARTED ON NS 1L AT 75ML/HR RATE,INFUSING VIA IV PUMP ON RFA.
[2017-05-24] MEDS ORDERED: ENOXAPARIN SODIUM 40 MG/0.4 ML DISP.SYRIN SQ ONE (06:43)
--- NOTE | 2017-05-24 06:46 | NUR ---
MS RN NOTES STARTED ON LOVENOX 40MG SQ ORDERED,GIVEN ON RIGHT LOWER ABDOMEN.
--- NOTE | 2017-05-24 06:59 | NUR ---
MS RN NOTES RESTING COMFORTABLY ON BED.PAIN AT 2/10,IVF INFUSING.IN NO ACUTE DISTRESS.WILL ENDORSE TO DAY NURSE FOR LORI.
--- NOTE | 2017-05-24 07:44 | NUR ---
RN OPEN NOTES RECEIVED REPORT FROM TOOL AND CUTTER GRINDER NURSE. PATIENT IS IN BED WITH HIS EYES CLOSED. EASILY AROUSED TO CALLING HER NAME. NO SIGNS AND SYMPTOMS OF DISTRESS. BED IN LOW POSITION, LOCKED AND TWO SIDE RAILS ARE UP. CALL LIGHT WITHIN REACH FOR SAFETY. WILL CONTINUE TO ASSESS AND MONITOR PATIENT THROUGH OUT MY SHIFT
[2017-05-24 08:00] VITALS: BP 117/60
[2017-05-24] MEDS: CEFTRIAXONE 1 G in IV D5W 50 ML IV SCH (08:39)
[2017-05-24] MEDS: HYDROCODONE/APAP 10/325MG 1 EA TABLET PO PRN ×2 (13:40→19:39)
[2017-05-24 16:00] VITALS: BP 129/85
--- NOTE | 2017-05-24 19:23 | NUR ---
RN CLOSING NOTES REPORT GAVE TO HOME HEALTH REGISTERED NURSE NURSE. PATIENT IS IN BED. ALERT AND ORIENTED TO NAME, PLACE AND TIME. NO SIGNS AND SYMPTOMS OF DISTRESS. DENIED PAIN. IV SITE IS INTACT AND PATENT. ALL NURSING CARE ANTICIPATED AND MET. PATIENT KEPT SAFE AND CLEAN. BED IN LOW POSITION, LOCKED AND TWO SIDE RAILS ARE UP. CALL LIGHT WITHIN REACH FOR SAFETY.
--- NOTE | 2017-05-24 19:35 | NUR ---
RN NOTES RECEIVED PT AWAKE ON BED, A/OX4, LEFT LEG CELLULITIS, CALL LIGHT WITHIN REACH, SIDERAILSUPX2 CONTINUE TO MONITOR
--- NOTE | 2017-05-24 19:42 | NUR ---
RN NOTES COMPLAINED OF LEFT LEG PAIN- NORCO 10/325 MG PO GIVEN ORDERED, V/S STABLE
[2017-05-24 20:00] VITALS: BP 132/75
--- NOTE | 2017-05-25 06:38 | NUR ---
RN NOTES SLEEPING BUT AROUSABLE, MORNING CARE RENDERED, CALL LIGHT WITHIN REACH, SIDERAILSUPX2 PT. NEEDS ATTENDED
[2017-05-25 07:02] LABS: BASOPHILS % (AUTO) 0.2 % (0.0-2.0); EOSINOPHILS # (AUTO) 0.2 /CMM (0.0-0.7); HEMATOCRIT 39 % (39-51); HEMOGLOBIN 12.9 g/dL (13.5-17.5); LYMPHOCYTES # (AUTO) 1.6 /CMM (0.8-4.8); LYMPHOCYTES % (AUTO) 19.4 % (20.0-44.0); MEAN CORPUSCULAR HEMOGLOBIN 29 PG (26.0-33.0); MEAN CORPUSCULAR HGB CONC 33 g/dl (31.0-36.0); MEAN CORPUSCULAR VOLUME 86 fL (80-96); MONOCYTES # (AUTO) 1.2 /CMM (0.1-1.30); MONOCYTES % (AUTO) 14.2 % (2.0-12.0); NEUTROPHILS # (AUTO) 5.4 /CMM (1.8-8.9); NEUTROPHILS % (AUTO) 64.2 % (43.0-81.0); PLATELET COUNT (AUTO) 241 /CMM (150-450); RDW COEFFICIENT OF VARIATION 13.5 (11.5-15.0); RED BLOOD CELL COUNT(AUTO) 4.52 MIL/uL (4.5-6.0); WHITE BLOOD COUNT (AUTO) 8.4 K/uL (4.3-11.0)
--- NOTE | 2017-05-25 07:20 | NUR ---
RN OPEN NOTES RECEIVED REPORT FROM SENIOR SOFTWARE ENGINEER ANALYTICS NURSE. PATIENT IS IN BED WITH HIS EYES CLOSED, EASILY AROUSED TO CALLING HIS NAME AND A LIGHT TOUCH. NO SIGNS AND SYMPTOMS OF DISTRESS. BED IN LOW POSITION, LOCKED AND TWO SIDE RAILS ARE UP. CALL LIGHT WITHIN REACH FOR SAFETY. WILL CONTINUE TO ASSESS AND MONITOR PATIENT THROUGH OUT MY SHIFT
[2017-05-25 07:33] LABS: CALCIUM, SERUM 8.5 mg/dL (8.5-10.1); CREATININE 0.8 mg/dL (0.6-1.3); MAGNESIUM 1.9 mg/dL (1.8-2.4); PHOSPHORUS 3.6 mg/dL (2.5-4.9); POTASSIUM 4.2 mmol/L (3.5-5.1)
[2017-05-25 07:35] LABS: THYROID STIMULATING HORMONE 1.839 uIU/mL (0.358-3.74)
[2017-05-25 08:00] VITALS: BP 128/74
[2017-05-25] MEDS: CEFTRIAXONE 1 G in IV D5W 50 ML IV SCH (08:13)
[2017-05-25] MEDS: ENOXAPARIN SODIUM 40 MG/0.4 ML DISP.SYRIN SQ SCH (08:16)
[2017-05-25] MEDS: IV NS 0.9% 1,000 ML IV PRN (09:53)
[2017-05-25] MEDS: HYDROCODONE/APAP 10/325MG 1 EA TABLET PO PRN ×2 (12:55→18:22)
[2017-05-25 16:00] VITALS: BP 121/61
--- NOTE | 2017-05-25 18:42 | NUR ---
RN CLOSING NOTES PATIENT IS IN BED. ALERT AND ORIENTED TO NAME, PLACE AND TIME. NO SIGNS AND SYMPTOMS OF DISTRESS. DENIED PAIN. IV SITE IS INTACT AND PATENT. ALL NURSING CARE ANTICIPATED AND MET. PATIENT KEPT SAFE AND CLEAN. BED IN LOW POSITION, LOCKED AND TWO SIDE RAILS ARE UP. CALL LIGHT WITHIN REACH FOR SAFETY. WILL ENDORSE TO DESIGNER ARCHITECT NURSE.
--- NOTE | 2017-05-25 19:30 | NUR ---
RN NOTES RECEIVED PT. AWAKE ON BED, A/OX4, DENIES PAIN, NO SOB, CALL LIGHT WITHIN REACH, SIDERIALSUPX2 CONTINUE TO MONITOR
[2017-05-25 20:00] VITALS: BP 110/72
--- NOTE | 2017-05-26 01:00 | NUR ---
RN NOTES PT. ASKED FOR SLEEPING PILL- AMBIEN 5MG PO GIVEN ORDERED, V/S STABLE
[2017-05-26] MEDS: IV NS 0.9% 1,000 ML IV PRN ×2 (01:02→16:21)
[2017-05-26 04:00] VITALS: BP 126/79
--- NOTE | 2017-05-26 06:35 | NUR ---
RN NOTES SLEEPING BUT AROUSABLE, DENIES PAIN, NO SOB, MORNING CARE RENDERED, CALL LIGHT WITHIN REACH, COLBYAILSUPX2, PT. NEEDS ATTENDED
--- NOTE | 2017-05-26 07:05 | NUR ---
RN NOTES PT IS RESTING COMFORTABLY IN BED, NO SIGNS OF DISTRESS NOTED. PT ON RA, RESPIRATIONS ARE EVEN AND UNLABORED. IV ON RFA INTACT AND RUNNING NS @ 75ML/HR. SAFETY MEASURES ARE IN PLACE, CALL LIGHT IS IN REACH. WILL CONTINUE TO MONITOR.
[2017-05-26 08:00] VITALS: BP 131/85
[2017-05-26] MEDS: ENOXAPARIN SODIUM 40 MG/0.4 ML DISP.SYRIN SQ SCH (08:14)
[2017-05-26] MEDS: CEFTRIAXONE 1 G in IV D5W 50 ML IV SCH (08:14)
[2017-05-26 16:00] VITALS: BP 128/71
--- NOTE | 2017-05-26 18:53 | NUR ---
RN NOTES PT IS RESTING IN BED COMFORTABLY, NO SIGNS OF DISTRESS NOTED. PT ON RA, RESPIRATIONS ARE EVEN AND UNLABORED. IV ON RFA INTACT AND RUNNING NS @ 75ML/HR. PT REFUSED LAB DRAWS BECAUSE IT WAS RAOUL. ALL ANTIBIOTICS GIVEN ORDERED. PT NEEDS MET. SAFETY MEASURES ARE IN PLACE, CALL LIGHT IS IN REACH. WILL ENDORSE TO MARKETING OPERATIONS SPECIALIST RN FOR CONTINUITY OF CARE.
--- NOTE | 2017-05-26 19:30 | NUR ---
MS RN OPENING NOTES: PATIENT IN BED, AOX4, ON ROOM AIR, BREATHING EVEN AND UNLABORED. APPEARS CALM AND IN NO DISTRESS, BUT DOES STATE THAT HE HAS 6/10 PAIN OVER HIS LEFT LEG. PIV OVER RFA G 20 INTACT AND PATENT, INFUSING WELL WITH NS RUNNING AT 75 ML/HR. NOTED LEFT LOWER LEG WITH SWELLING AND REDNESS, WARM TO TOUCH, MAINTAINED ELEVATED ON PILLOW. PROVIDED FOR COMFORT AND SAFETY. BED IN LOWEST AND LOCKED POSITION, SIDERAILS UP X 2, CALL LIGHT WITHIN REACH. WILL CONT TO MONITOR.
[2017-05-26 20:00] VITALS: BP 146/86
--- NOTE | 2017-05-27 07:04 | NUR ---
MS RN CLOSING NOTES: PATIENT IN BED, AOX4. ON ROOM AIR, BREATHING EVEN AND UNLABORED. APPEARS CALM AND IN NO DISTRESS. PIV OVER RFA G18 INTACT AND PATENT, INFUSING WELL WITH NS RUNNING AT 75 ML/HR. PROVIDED FOR COMFORT AND SAFETY. EBD IN LOWEST AND LOCKED POSITION, SIDERAILS UP X 2, CALL LIGHT WITHIN REACH. NO ACUTE CHANGE IN CONDITION NOTED THROUGH SHIFT. WILL ENDORSE TO AM RN FOR LORI.
[2017-05-27 07:21] LABS: BASOPHILS % (AUTO) 0.5 % (0.0-2.0); EOSINOPHILS # (AUTO) 0.2 /CMM (0.0-0.7); EOSINOPHILS % (AUTO) 2.5 % (0.0-6.0); HEMATOCRIT 40 % (39-51); HEMOGLOBIN 13.4 g/dL (13.5-17.5); LYMPHOCYTES # (AUTO) 1.7 /CMM (0.8-4.8); LYMPHOCYTES % (AUTO) 18.4 % (20.0-44.0); MEAN CORPUSCULAR HEMOGLOBIN 29 PG (26.0-33.0); MEAN CORPUSCULAR HGB CONC 34 g/dl (31.0-36.0); MEAN CORPUSCULAR VOLUME 85 fL (80-96); MONOCYTES # (AUTO) 0.9 /CMM (0.1-1.30); MONOCYTES % (AUTO) 9.1 % (2.0-12.0); NEUTROPHILS # (AUTO) 6.6 /CMM (1.8-8.9); NEUTROPHILS % (AUTO) 69.5 % (43.0-81.0); PLATELET COUNT (AUTO) 329 /CMM (150-450); RDW COEFFICIENT OF VARIATION 13.4 (11.5-15.0); RED BLOOD CELL COUNT(AUTO) 4.64 MIL/uL (4.5-6.0); WHITE BLOOD COUNT (AUTO) 9.5 K/uL (4.3-11.0)
[2017-05-27 07:30] LABS: CREATININE 0.8 mg/dL (0.6-1.3); MAGNESIUM 2.2 mg/dL (1.8-2.4); PHOSPHORUS 3.6 mg/dL (2.5-4.9); POTASSIUM 4.5 mmol/L (3.5-5.1)
[2017-05-27 08:00] VITALS: BP 129/75
--- NOTE | 2017-05-27 08:00 | NUR ---
m/s change management manager: initial assessment received pt in bed awake, a/ox4 with dx: lle cellulitis. lle still swelling, but no redness noted. pt responding well to iv antibiotic. continue on ivf, infusing well. no c/o pain or any discomfort at this time. instructed to call for assistance. will continue to monitor.
[2017-05-27] MEDS: ENOXAPARIN SODIUM 40 MG/0.4 ML DISP.SYRIN SQ SCH (09:00)
[2017-05-27] MEDS: HYDROCODONE/APAP 10/325MG 1 EA TABLET PO PRN (09:25)
[2017-05-27] MEDS: IV NS 0.9% 1,000 ML IV PRN (09:26)
[2017-05-27] MEDS: CEFTRIAXONE 1 G in IV D5W 50 ML IV SCH (09:42)
--- NOTE | 2017-05-27 11:30 | NUR ---
m/s panama hat blocker: md visit seen and examined by dr. brooks with verbal order ok to shower and plan to discharge pt today.
[2017-05-27] MEDS ORDERED: SULF1TAB48 PO (12:34)
--- NOTE | 2017-05-27 12:38 | NUR ---
m/s lap checker: notes received new order to discharge pt home. order acknowledge. pt having lunch and aware of being discharge home.
--- NOTE | 2017-05-27 14:40 | NUR ---
m/s surface plate finisher: d'c instruction discharged instructions given to pt with prescription and verbalized understanding. pt refused skin photos. h/l removed with tip intact with no bleeding, no redness, and no swelling noted.
--- NOTE | 2017-05-27 14:50 | NUR ---
m/s data visualization developer: discharged discharged home accompanied by friend via private car in stable condition with valuables and d'c papers.
== END 2017-05-27 14:45 | disposition home or self-care (01) | DRG 720 ==
LOC: ER 01:15 → MED 04:46
PROVIDERS: ATTEND Internal Medicine
DX: A41.9 Sepsis, unspecified organism (principal); I10 Essential (primary) hypertension; L03.116 Cellulitis of left lower limb; E87.6 Hypokalemia; Z59.0 Homelessness; F41.9 Anxiety disorder, unspecified; Z87.81 Personal history of (healed) traumatic fracture
CPT/HCPCS: 36415; 73590-TC; 80048-TC; 80061-TC; 83735-TC; 84100-TC; 84443-TC; 85025-TC; 85730-TC; 87040-TC; 87081-TC; 93971-TC; A4606; J0696; J1650; J2270; J2405; J2543; J3370; J7030; J7060; Z7610

== ENCOUNTER 2018-06-22 13:48 | Inpatient (IN) | payer OTHER ==
[~2018-06-22] VITALS: Ht 188 cm; Wt 88.5 kg
[~2018-06-22 13:48] MED LIST changes: -BUSP30TA2 PO; -DOXY-182 PO; +SULF1TAB48 PO
--- NOTE | 2018-06-22 14:08 | NUR ---
BIB SELF, WOUND CHECK ON LT 5TH & 4TH FINGER, POSS INFECTION. PT AAOX4, VSS. DENIES ANY OTHER DISCOMFORT @ THIS TIME. AWAITING EVAL BY MD & WILL CONT TO MONITOR
[2018-06-22] MEDS ORDERED: PIPERACILLIN /TAZOBACTAM 3.375 G in IV D5W 50 ML IV ONE (14:30)
[2018-06-22] MEDS ORDERED: IV NS 0.9% 1,000 ML BAG IV ONE (14:30)
[2018-06-22] MEDS ORDERED: VANCOMYCIN 1 GM in IV D5W 250 ML IV ONE (14:30)
[2018-06-22] MEDS ORDERED: KETOROLAC TROMETHAMINE INJ 30 MG/ML VIAL IV ONE (14:30)
[2018-06-22 14:46] LABS: BASOPHILS % (AUTO) 0.6 % (0.0-2.0); EOSINOPHILS % (AUTO) 2.4 % (0.0-6.0); HEMATOCRIT 40 % (39-51); HEMOGLOBIN 13.6 g/dL (13.5-17.5); LYMPHOCYTES # (AUTO) 1.8 /CMM (0.8-4.8); LYMPHOCYTES % (AUTO) 31.8 % (20.0-44.0); MEAN CORPUSCULAR HGB CONC 34 g/dl (31.0-36.0); MEAN CORPUSCULAR VOLUME 86 fL (80-96); MONOCYTES # (AUTO) 0.8 /CMM (0.1-1.30); MONOCYTES % (AUTO) 14.6 % (2.0-12.0); NEUTROPHILS # (AUTO) 2.9 /CMM (1.8-8.9); NEUTROPHILS % (AUTO) 50.6 % (43.0-81.0); PLATELET COUNT (AUTO) 181 /CMM (150-450); RED BLOOD CELL COUNT(AUTO) 4.64 MIL/uL (4.5-6.0); WHITE BLOOD COUNT (AUTO) 5.7 K/uL (4.3-11.0)
[2018-06-22] MEDS ORDERED: KETOROLAC TROMETHAMINE 15 MG/ML VIAL ONE (14:53)
[2018-06-22 14:54] LABS: CALCIUM, SERUM 8.5 mg/dL (8.5-10.1); CREATININE 0.9 mg/dL (0.6-1.3); POTASSIUM 4.3 mmol/L (3.5-5.1)
[2018-06-22 15:01] LABS: ALBUMIN 3.2 g/dL (3.4-5.0); BILIRUBIN,TOTAL 0.2 mg/dL (0.2-1.0); TOTAL PROTEIN, SERUM 7.3 g/dL (6.4-8.2)
--- NOTE | 2018-06-22 15:05 | NUR ---
PT SEEN & EVAL'D BY DR. LYNNE. MEDICATED FOR PAIN & WILL CONT TO MONITOR.
--- NOTE | 2018-06-22 16:00 | NUR ---
EMT @ BS FOR CUTTING OF PT'S RING ON LT RING FINGER.
--- NOTE | 2018-06-22 16:50 | NUR ---
ADMIT TO [facility] ROOM 321-1 DX FINGER CELLULITIS ACCEPTING NATALIE
[2018-06-22] MEDS ORDERED: Z GUARD REMEDY 2 OZ OINT TP PRN (17:00)
[2018-06-22] MEDS ORDERED: ACETAMINOPHEN 325 MG TABLET PO PRN (17:00)
[2018-06-22] MEDS ORDERED: ZOLPIDEM TARTRATE 5 MG TABLET PO PRN (17:00)
[2018-06-22] MEDS ORDERED: MAG HYDROX/AL HYDROX/SIMETH 30 ML UDC PO PRN (17:00)
[2018-06-22] MEDS ORDERED: VANCOMYCIN 0.75 GM in IV D5W 250 ML IV SCH (17:00)
[2018-06-22] MEDS ORDERED: MAGNESIUM HYDROXIDE 30 ML UDC PO PRN (17:00)
[2018-06-22] MEDS ORDERED: ONDANSETRON HCL/PF 4 MG/2 ML VIAL IVP PRN (17:00)
[2018-06-22] MEDS ORDERED: HYDROCODONE/APAP 5/325MG 1 EACH TABLET PO PRN (17:00)
[2018-06-22] MEDS ORDERED: FEE PK DOSING 1 MIN EA MC ONE (17:07)
--- NOTE | 2018-06-22 19:20 | NUR ---
RN MS ADMITTING NOTES RECEIVED PT FROM ER VIA WHEELCHAIR, PT AWAKE ALERT ORIENTEDX4, BREATHING EVEN AND UNLABORED ON ROOM AIR, NO SOB NOTED. IV ACCESS ON THE RIGHT HAND 20G SL , PATENT AND FLUSHING. WOUNDS ON THE 4TH ADN 5TH DIGITS OF THE LEFT HAND, OTHERWISE SKIN INTACT. NO COMPLAINT OF PAIN OR DISCOMFORT AT THE MOMENT, BED IN LOWEST LOCKED POSITION, CALL LIGHT WITHIN REACH AT ALL TIMES, WILL CONTINUE TO MONITOR
[2018-06-22] MEDS: CEFTRIAXONE 1 G in IV D5W 50 ML IV SCH (23:47)
--- NOTE | 2018-06-23 06:20 | NUR ---
RN MS CLOSING NOTES PT REMAINS IN BED, AWAKE ALERT ORIENTEDX4, BREATHING EVEN AND UNLABORED ON ROOM AIR, NO SOB NOTED. IV ACCESS ON THE RIGHT HAND 20G SL , PATENT AND FLUSHING.NO COMPLAINT OF PAIN OR DISCOMFORT AT THE MOMENT, BED IN LOWEST LOCKED POSITION, CALL LIGHT WITHIN REACH AT ALL TIMES, WILL ENDORSE TO DAY NURSE FOR LORI.
[2018-06-23 07:24] LABS: CALCIUM, SERUM 8.3 mg/dL (8.5-10.1); CREATININE 0.9 mg/dL (0.6-1.3); MAGNESIUM 1.9 mg/dL (1.8-2.4); PHOSPHORUS 3.6 mg/dL (2.5-4.9); POTASSIUM 4.4 mmol/L (3.5-5.1)
[2018-06-23 07:35] LABS: BASOPHILS % (AUTO) 0.5 % (0.0-2.0); EOSINOPHILS % (AUTO) 3.6 % (0.0-6.0); HEMATOCRIT 38 % (39-51); HEMOGLOBIN 12.7 g/dL (13.5-17.5); LYMPHOCYTES # (AUTO) 1.5 /CMM (0.8-4.8); LYMPHOCYTES % (AUTO) 30.4 % (20.0-44.0); MEAN CORPUSCULAR HGB CONC 34 g/dl (31.0-36.0); MEAN CORPUSCULAR VOLUME 86 fL (80-96); MONOCYTES # (AUTO) 0.7 /CMM (0.1-1.30); MONOCYTES % (AUTO) 15.2 % (2.0-12.0); NEUTROPHILS # (AUTO) 2.4 /CMM (1.8-8.9); NEUTROPHILS % (AUTO) 50.3 % (43.0-81.0); PLATELET COUNT (AUTO) 164 /CMM (150-450); RED BLOOD CELL COUNT(AUTO) 4.39 MIL/uL (4.5-6.0); WHITE BLOOD COUNT (AUTO) 4.8 K/uL (4.3-11.0)
--- NOTE | 2018-06-23 07:36 | NUR ---
MS RN OPENING NOTE RECEIVED PT IN BED, ALERT AND ORIENTED X4. DENIES N/V, CHEST PAIN, SOB. PT C/O OF GENERALIZED PAIN 12/09, INFORMED PT THAT THE NURSE WILL BRING PAIN MEDICATION PENDING VS CHECK, PT VERBALIZED AGREEMENT. R HAND #20G IV IS SALINE LOCKED WITHOUT REDNESS OR SWELLING. ALL NEEDS ATTENDED TO, BED IS LOCKED AND IN LOWEST POSITION, SIDE RAILS UP X2, CALL LIGHT WITHIN REACH.
[2018-06-23] MEDS: VANCOMYCIN 1.25 GM in IV D5W 500 ML IV SCH ×3 (07:57)
[2018-06-23 08:00] VITALS: BP 129/85
[2018-06-23 09:41] LABS: EOSINOPHILS % (MANUAL) 1 % (0-4); LYMPHOCYTES % (MANUAL) 20 % (16-48); MONOCYTES % (MANUAL) 9 % (0-11.0); NEUTROPHILS % (MANUAL) 70 (42-76)
--- NOTE | 2018-06-23 10:04 | NUR ---
WOUND CARE CONSULT: PT PRESENTS WITH ESCHAR/LESIONS TO LEFT 4TH AND 5TH FINGERS, PRESENT ON ADMISSION. RECOMMEND SURGICAL CONSULT. PT IS INDEPENDENT WITH BED MOBILITY AND CONTINENT. WILL SEE PRN.
[2018-06-23] MEDS ORDERED: HYDROMORPHONE 1 MG/1 ML DISP.SYRIN IV PRN (15:30)
[2018-06-23] MEDS: VANCOMYCIN 1 GM in IV D5W 250 ML IV SCH (15:49)
[2018-06-23 16:00] VITALS: BP 130/80
[2018-06-23] MEDS: oxyCODONE/APAP (5/325 MG) 1 UDTAB TABLET PO PRN (16:10)
[2018-06-23] MEDS: LACTOBACILLUS RHAMNOSUS GG 1 EACH CAP.SPRINK PO SCH (17:25)
[2018-06-23] MEDS: CEFTRIAXONE 1 G in IV D5W 50 ML IV SCH (17:26)
--- NOTE | 2018-06-23 19:21 | NUR ---
MS RN CLOSING NOTE PT IN BED, ALERT AND ORIENTED X4. DENIES N/V, CHEST PAIN, SOB. PT RATES PAIN IN THE LEFT HAND /10 AND TOLERABLE AT THIS TIME. R HAND #20G IV IS SALINE LOCKED WITHOUT REDNESS OR SWELLING. ADLS AND WOUND CARE PROVIDED. ALL NEEDS ATTENDED TO, BED IS LOCKED AND IN LOWEST POSITION, SIDE RAILS UP X2, CALL LIGHT WITHIN REACH. WILL ENDORSE TO FOOD BEVERAGE SUPERVISOR NURSE FOR CONTINUITY OF CARE.
[2018-06-23 20:00] VITALS: BP 134/77
--- NOTE | 2018-06-23 20:52 | NUR ---
RN MS OPENING NOTES RECEIVED PT IN BED, AWAKE ALERT ORIENTEDX4, BREATHING EVEN AND UNLABORED ON ROOM AIR, NO SOB NOTED. IV ACCESS ON THE RIGHT HAND 20G SL , PATENT AND FLUSHING. NO COMPLAINT OF PAIN OR DISCOMFORT AT THE MOMENT, BED IN LOWEST LOCKED POSITION, CALL LIGHT WITHIN REACH AT ALL TIMES, WILL CONTINUE TO MONITOR
[2018-06-24] MEDS: VANCOMYCIN 1 GM in IV D5W 250 ML IV SCH ×3 (00:24→16:07)
[2018-06-24] MEDS: oxyCODONE/APAP (5/325 MG) 1 UDTAB TABLET PO PRN ×3 (03:15→23:46)
[2018-06-24 07:41] LABS: CALCIUM, SERUM 8.6 mg/dL (8.5-10.1); CREATININE 0.9 mg/dL (0.6-1.3); POTASSIUM 4.2 mmol/L (3.5-5.1)
--- NOTE | 2018-06-24 07:44 | NUR ---
MS RN OPENING NOTES RECEIVED PT LAYING IN BED, RESTING COMFORTABLY. PT IS A/O X4, AFEBRILE. RESPIRATIONS ARE EVEN AND UNLABORED, NOT IN ANY ACUTE DISTRESS NOTED. PT DENIES ANY PAIN AT THIS TIME, NO C/O SOB, N/V NOTED. IV ACCESS TO RIGHT HAND, NO INFILTRATION NOTED, DRESSING KEPT CLEAN AND DRY. SAFETY MEASURES ARE IN PLACE. INSTRUCTED PT TO USE CALL LIGHT WHEN ASSISTANCE IS NEEDED, CALL LIGHT IS LEFT WITHIN REACH. WILL MONITOR THROUGHOUT SHIFT FOR CONTINUITY OF CARE.
[2018-06-24 08:00] VITALS: BP 123/80
[2018-06-24] MEDS: LACTOBACILLUS RHAMNOSUS GG 1 EACH CAP.SPRINK PO SCH ×2 (08:14→16:07)
--- NOTE | 2018-06-24 09:30 | NUR ---
MS RN NOTES-- DRESSING CHANGE DONE TO 4TH/5TH DIGITS. TOLERATED WELL. DRESSING KEPT CLEAN AND DRY. WILL CONTINUE MONITOR FOR ANY SIGNIFICANT CHANGES
[2018-06-24 16:00] VITALS: BP 129/76
[2018-06-24] MEDS: CEFTRIAXONE 1 G in IV D5W 50 ML IV SCH (17:20)
--- NOTE | 2018-06-24 18:49 | NUR ---
MS RN CLOSING NOTES ALL DUE MEDS GIVEN, NEEDS MET AND ANTICIPATED. PT IS A/O X4, AFEBRILE.R ESPIRATIONS ARE EVEN AND UNLABORED, NOT IN ANY ACUTE DISTRESS NOTED. PT DENIES ANY PAIN AT THIS TIME, NO C/O SOB, N/V NOTED. NEW PERIPHERAL IV INSERTED TO RFA G22, INTACT. DRESSING KEPT CLEAN AND DRY. SAFETY MEASURES ARE IN PLACE. WILL ENDORSE TO NEXT SHIFT FOR CONTINUITY OF CARE.
--- NOTE | 2018-06-24 19:30 | NUR ---
RN NOTES RECEIVED PT. AWAKE ON BED, A/OX4, AMBULATORY DENIES PAIN NO SOB, CALL LIGHT WITHIN REACH, [id number], CONTINUE TO MONITOR
[2018-06-24 20:00] VITALS: BP 132/79
--- NOTE | 2018-06-24 23:45 | NUR ---
RN NOTES COMPLAINED OF GENERALIZED PAIN- PERCOCET 2 TABS PO GIVEN ORDERED, V/S STABLE
[2018-06-25] MEDS ORDERED: VANCOMYCIN 1 GM in IV D5W 250 ML IV SCH (04:00)
[2018-06-25 06:37] LABS: CALCIUM, SERUM 8.5 mg/dL (8.5-10.1); CREATININE 0.9 mg/dL (0.6-1.3); POTASSIUM 4.2 mmol/L (3.5-5.1)
--- NOTE | 2018-06-25 06:46 | NUR ---
RN NOTES AWAKE, DENIES PAIN, NO SOB, MORNING CARE RENDERED, CALL LIGHT WITHIN REACH, [id number], PT. NEEDS ATTENDED
--- NOTE | 2018-06-25 07:30 | NUR ---
MSRN. PT RECEIVED A&0X3, AWAKE AND WATCHING T.V. PT TOLERATING ROOM AIR WITHOUT RESP DISTRESS, PT DENIES PAIN. PT WITH IVC AT R FA INTACT AND SALINE FLUSH PATENT. PT DRESSINGS CLEAN AND INTACT. PT BED IN LOWEST LOCKED POSITION WITH [id number] AND CALL FRAZIER WITHIN REACH. PT BRIEFED ON POC AND IS WITHOUT CONCERN OR COMPLAINT AT THIS TIME. WILL CONTINUE POC.
[2018-06-25 08:00] VITALS: BP 119/70
[2018-06-25] MEDS: LACTOBACILLUS RHAMNOSUS GG 1 EACH CAP.SPRINK PO SCH (08:39)
--- NOTE | 2018-06-25 09:35 | NUR ---
WOUND CARE COMPLETED PER RX AND PHOTOS UPDATED.
--- NOTE | 2018-06-25 12:30 | NUR ---
MSRN. PT PREPARED FOR D/C PER . PT TOLERATING ROOM AIR AND DENIES PAIN AT THIS TIME. PT IVC REMOVED AND NAD AT SITE. PT WOUND CARE COMPLETED AND PHOTOS UPDATED. PT WITH ALL BELONGINGS AND DOCUMENT SIGNED. PT BRIEFED ON SOH D/C PACKET AND VERBALIZING UNDERSTANDING, RESOURCES AND INTENT TO FOLLOW POC. PT ASKED X2 AND DENIES BEING HOMELESS AND DECLINES RESOURCES. ALL NURSE DUTIES ATTENDED TO AND PT DENIES FURTHER NEEDS. PT AMB EXIT WITH GF FOR TRANSPORT. PT LEFT WITHOUT CONCERN OR COMPLAINT AND GRATEFUL FOR CARE.
== END 2018-06-25 12:10 | disposition home or self-care (01) | DRG 364 ==
LOC: ER 13:50 → MED 16:56
PROVIDERS: ADMIT Internal Medicine; ATTEND Nurse Practitioner Acute Care
PROC: 0JBK0ZZ Excision of Left Hand Subcutaneous Tissue and Fascia, Open Approach (ICD-10-PCS; principal; 2018-06-23)
DX: L03.012 Cellulitis of left finger (principal); N17.0 Acute kidney failure with tubular necrosis; I10 Essential (primary) hypertension; Z59.0 Homelessness; Z87.81 Personal history of (healed) traumatic fracture; Z98.890 Other specified postprocedural states; F17.200 Nicotine dependence, unspecified, uncomplicated; E88.09 Other disorders of plasma-protein metabolism, not elsewhere classified
CPT/HCPCS: 36415; 73130-TC; 80048-TC; 80076-TC; 80202-TC; 82962-TC; 83690-TC; 83735-TC; 84100-TC; 85025-TC; 85730-TC; 87070-TC; 87081-TC; 87186-TC; A6402; A6403; G0378; J0696; J1885; J2405; J2543; J3370; J7030; J7050; J7060